=== PATIENT | female | born 1975 | race Caucasian/White ===

== ENCOUNTER → 2016-11-21 | Outpatient (CLI) | payer BC ==
[2014-02-27 11:38] VITALS: BP 136/93
--- NOTE | 2016-11-21 12:18 | KCIC ---
ABDOMEN LTD History: Right upper quadrant pain Comparison: None. Findings: Multiple sonographic images of the abdomen are submitted. There is no abnormality of the visualized pancreas, distal body and tail not seen due to bowel gas. Visualized abdominal aortic caliber is within normal limits up to 2 cm proximally. There is poor visualization of the inferior vena cava due to bowel gas. There is diffuse coarsening of the echotexture of the liver. Right lobe of the liver measured 19.6 cm longitudinal. Common bile duct is within normal limits at 0.3 cm. Gallbladder is present without intraluminal abnormality, wall thickening, pericholecystic fluid. Right kidney measured 11.4 x 4.2 x 6.1 cm, no hydronephrosis. No free fluid is demonstrated. Impression: 1. There is hepatic steatosis and hepatomegaly. Midline structures are not well visualized due to bowel gas. Electronically signed by: Vinh Bond MD (11/21/2016 12:14 PM) [id number]
== END | disposition home or self-care (01) ==
LOC: KCIC US 09:15
PROVIDERS: ATTEND Family Medicine
DX: K76.0 Fatty (change of) liver, not elsewhere classified (principal); R16.0 Hepatomegaly, not elsewhere classified
CPT/HCPCS: 76705